=== PATIENT | female | born 1960 | race Caucasian/White ===

== ENCOUNTER → 2016-12-20 11:11 | Outpatient (CLI) | payer OTHER ==
[2014-02-05 07:02] VITALS: BMI 33.6
[~2016-12-20 11:11] MED LIST: CLARITIN 10 MG10 MG PO; COCONUT OIL; ESTERIFIED ESTROGENS PO; METHYLTESTOSTERONE PO; NASONEX NASAL S17 GM NS; NORCO 10/325 TA1 TA1 PO; ROBAXIN-750750 MG PO; SYNTHROID50 MCG PO; VITAMIN D31000 UNIT
== END | disposition home or self-care (01) ==
LOC: D.CT 11:11
DX: J32.9 Chronic sinusitis, unspecified (principal)

== ENCOUNTER → 2019-10-02 22:54 | Outpatient (CLI) | payer MEDICAID ==
[2014-02-05 07:02] VITALS: BMI 33.6
== END | disposition home or self-care (01) ==
LOC: D.MAMMO 09-22 14:30
PROVIDERS: ATTEND Family Medicine
DX: Z12.31 Encounter for screening mammogram for malignant neoplasm of breast (principal)